=== PATIENT | female | born 1960 | race Caucasian/White ===

== ENCOUNTER 2018-01-25 08:55 | Emergency (ER) | payer SELFPAY ==
[~2018-01-25] VITALS: Ht 162.6 cm; Wt 88.1 kg
[2018-01-25 09:06] VITALS: BP 144/95
== END 2018-01-25 09:51 | disposition home or self-care (01) ==
LOC: ED 09:30
DX: E89.0 Postprocedural hypothyroidism (principal); Z76.0 Encounter for issue of repeat prescription; E03.9 Hypothyroidism, unspecified; F17.200 Nicotine dependence, unspecified, uncomplicated
CPT/HCPCS: 99283